=== PATIENT | male | born 1950 | race Caucasian/White ===

== ENCOUNTER 2016-07-09 15:01 | Inpatient (IN) | payer MEDICARE ==
[~2016-07-09] VITALS: Ht 177.8 cm; Wt 120.0 kg
--- NOTE | ~2016-07-09 | CO ---
ADMIT: 07/09/2016 RM/LOC: 527 [facility] MR#: [id number] [address] [facility] [address] [place] [phone] VU GARRET Ranjit [address] [place] [address] Consultation SEX: M AGE: 65 : 1950 DATE OF CONSULTATION: 07/09/2016 ATTENDING PHYSICIAN: Aby Ernandez CONSULTING PHYSICIAN: Castro Booth MD REASON FOR CONSULTATION: Right tib-fib fracture. HISTORY OF PRESENT ILLNESS: The patient is a 65-year-old male with multiple medical problems including an aortic valve, which he is on Coumadin for. He was up in [place] at his home when he fell down on the ground injuring his left lower leg. He was found to have a tib-fib fracture in [place], was splinted and sent to our facility for definitive care and treatment. The patient is once again on Coumadin for an aortic valve. His INR was 3.48. Dr. Ernandez has admitted him and started him on some vitamin K and FFP. The patient denies any other injuries during the fall. PAST MEDICAL HISTORY: As per Dr. Ernandez' history and physical. MEDICATIONS: Please see the medication MAR. ALLERGIES: NO KNOWN DRUG ALLERGIES. SOCIAL HISTORY: Patient lives with in [place]. REVIEW OF SYSTEMS: Noncontributory with exception of his right lower extremity at this time. PHYSICAL EXAMINATION: HEENT, heart, lungs, and abdomen as per Dr. Ernandez medical evaluation. Examination of right lower extremity, he does have some swelling. His compartments are supple. He is able to wiggle his toes. Good palpable pulses. Sensation intact to light touch. No increased pain with passive stretch of his toes. No evidence of compartment syndrome at this time. IMAGING: X-rays show a distal 3rd tibia fracture with distal 3rd comminuted fibular fracture. Little bit of shortening noted here, just some very mild angulation. On the initial x-rays from [place], the foot was certainly externally rotated. We did re-splint him in our emergency room pulling this out straighter, placing a well-padded posterior splint up just past the knee and packed some ice on this. ASSESSMENT: Left tib-fib fracture. This is a closed injury from low energy trauma fall from a standing position. Also has multiple medical problems and ADMIT: 07/09/2016 RM/LOC: 527 [facility] MR#: [id number] [address] [address] GARRET WOMACK [address] [place] [address] Consultation SEX: M AGE: 65 : 1950 is anticoagulated at this time. PLAN: Once again, we placed him into a well-padded posterior splint just past the knee. No evidence of compartment syndrome at this time. We will have him reverse his Coumadin, normalize his INR as he is about 3.5 at this point. He got some vitamin K, and is going to get some fresh frozen plasma as well. The goal is to hopefully get this down by morning so that we could proceed with an intramedullary nail here. We discussed the procedure as well as risks and benefits with the patient's at length including but not limited to, infection, bleeding, damage to nerves and blood vessels, nonunion, need for further surgery. The questions were answered and they do agree to proceed at this time. Castro Booth MD/ taylor JOB #: [id number] CC: Aby Ernandez, Attending Physician Aby Ernandez, Family Physician
--- NOTE | 2016-07-12 08:22 | ER ---
ADMIT: 07/09/2016 RM/LOC: 527 [facility] MR#: [id number] [address] [facility] [address] [place], [place] [address] GARRET WOMACK [address] [place] [address] Emergency Room Report SEX: M AGE: 65 : 1950 DATE: 07/09/2016 TIME: 1501 hours. Please refer to my T-sheet for complete H and P. Briefly, patient is a 65-year- old who comes in with a fractured right leg. The complexity is he doubled up on his meds today accidentally and he got lightheaded, fell, hurt his right leg. He was seen at [place], diagnosed with a fracture, put in a splint, transported down here. He says he hurts nowhere else. Did not hit his head or neck. He is anticoagulated on Coumadin. PHYSICAL EXAMINATION: VITAL SIGNS: Blood pressure 125/72, pulse 62, respirations 10, sat 96% room air, temp is 97.3 GENERAL he is in no acute distress. HEENT: Grossly normal. Pupils equal, round, and reactive to light. NECK: He has no pain in his neck. LUNGS: Clear. HEART: Regular with a grade 4/6 systolic murmur. He has a mechanical valve. ABDOMEN: Soft. BACK: He has no gross deformities or pain. Pelvis, no pain with pelvic rock. EXTREMITIES: His left lower and bilateral upper extremities are grossly normal. Right lower is in a splint. Pain from knee down. He does have a pedal pulse and he is able to move his toes. EMERGENCY DEPARTMENT COURSE: I reviewed his x-ray, it revealed both tib-fib fractures that are displaced. We are going to remove his splint. I talked to Dr. Booth and talked to Dr. Ernandez who will admit to the hospital. They will be involved in his care. ASSESSMENT: 1. Right tib-fib fracture as described. 2. Fall. 3. Anticoagulated. PLAN: Admit to the hospital. Stanislaw Benitez MD/ taylor JOB #: [id number] CC: Aby Ernandez MD, Attending Physician Aby Ernandez MD, Family Physician
--- NOTE | 2016-07-13 07:00 | HP ---
ADMIT: 07/09/2016 RM/LOC: 527 [facility] MR#: [id number] [address] [facility] [address] [place], [place] [address] GARRET PEREYRA [address] [place] [address] History and Physical SEX: M AGE: 65 : 1950 DATE OF SERVICE: 07/09/2016 HISTORY OF PRESENT ILLNESS: Mr. Pereyra is a 65-year-old man with a past medical history significant for aortic stenosis followed by mechanical [facility] aortic valve replacement as well as idiopathic hypertrophic subaortic stenosis with myectomy, COPD of unknown grade, hypertension, hyperlipidemia, history of nephrolithiasis, and PTSD, who presents to our facility after sustaining a right tib-fib fracture. He states that he was in his usual state of health until last Tuesday when he was diagnosed with a urinary tract infection. He states that it was a severe kidney infection and he was placed on Levaquin and baclofen for the back spasms. He states that he has been taking the Levaquin and baclofen as instructed. He states that he was taking a nap after lunch, and woke up and took his evening medications. He states that he is not sure exactly what prompted him to take the evening medications early, but he did. He then started having some muscles spasms and jerking of his legs. He states that he jerked and then went down next to a piano, but then had another muscle spasm and his legs jerked again, and he went down on his leg and it snapped. He states that he has been having some fevers with his infection, last one was yesterday evening. Today is the first day that he has not had back spasms. He has no kidney doctor, but has seen Dr. Rivera in the past from Urology here for his history of kidney stones. He states that it has been several years since he has seen Dr. Rivera. He denies any burning with urination. He does state that his urine is cloudy. He states that a culture was done at [facility], and it is sensitive to the medication that he is currently on. He states that he has been battling kidney stones for several years. He states that he has also been having difficulties with urinary tract and kidney infections for the last several months. When the patient arrived at the [facility], he was noted to have a blood pressure of 73/56. He was afebrile. Heart was in the 60s, respiratory rate is 16, and he was saturating at 95% on room air. In the hospital emergency room, he was started on normal saline bolus of 1 L. An x-ray demonstrated a comminuted fracture of the right tib-fib and a posterior splint was placed. He was transferred to [place] for further medical evaluation and care. He tells me that he does have the shortness of breath and can walk 2 to 3 flights of stairs without difficulties he estimates. He states that he has never had any problems with anesthesia in the past. He does not have any blood clot in himself or his family members. He does state that he does have hypertension. He also is overweight on appearance and is greater than 65. He states that his neck circumference is just 15.5 inches. This is based off his dress shirt neck collar size. PAST MEDICAL HISTORY: 1. Hypertension. 2. Hyperlipidemia. 3. COPD with history of recurrent pneumonias. 4. History of nephrolithiasis. ADMIT: 07/09/2016 RM/LOC: 527 [facility] MR#: [id number] [address] [place] [phone] GARRET PEREYRA [address] [place] [address] History and Physical SEX: M AGE: 65 : 1950 5. History of stenotic aortic valves and idiopathic hypertrophic subaortic stenosis status post myectomy and aortic valve replacement. 6. PTSD, anxiety, and depression after the of 2 of his sons. PAST SURGICAL HISTORY: 1. Aortic valve replacement and myectomy approximately 11 years ago. 2. Rotator cuff surgery in 1997. 3. Cataract surgery. HOME MEDICATIONS: Include: 1. Lisinopril 5 mg every day. 2. Metoprolol tartrate 25 mg twice daily. 3. Amlodipine 2.5 mg every day. 4. Warfarin 2.5 mg every Tuesday, Tuesday, Tuesday, , Tuesday, and Tuesday. 5. Spiriva. 6. Ventolin. 7. Baclofen. 8. Sucralfate. 9. Divalproex 500 at bedtime. 10.Alprazolam 1 mg at bedtime. 11.Venlafaxine 150 mg daily. 12.Furosemide 40 mg every day. 13.Aspirin 81 mg daily. 14.Vitamin D 2000 units daily. 15.Multivitamin. 16.The patient is on Levaquin 500 mg daily for a bladder infection. ALLERGIES: NO KNOWN MEDICAL ALLERGIES. FAMILY HISTORY: Both his mother and father were alcoholics. He states that his mother, father, and a brother passed in a carbon monoxide poisoning. He has some siblings with type 2 diabetes. He states that he has had 2 sons passed, one son had some sort of heart disease and the patient thinks that he passed from a heart attack in his 30s. Second son from drug abuse. SOCIAL HISTORY: The patient states that he is a former smoker, but tells me that his smoking was limited to bumming off cigarette from friends. Denies any alcohol problems. Denies any drugs. 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 He is disabled from his PTSD. He lives in [place] with his . He enjoys working on solar panels. REVIEW OF SYSTEMS: The patient states that he has had fevers over the last couple of days as well as some edema in his lower extremities. He also has had severe back pains as mentioned in the history of present illness as well as muscle spasms in his legs as mentioned above. Otherwise, a complete review ADMIT: 07/09/2016 RM/LOC: 527 [facility] MR#: [id number] 26[address] [facility] [address] [place], [place] [address] VU GARRET Ranjit [address] [place] [address] History and Physical SEX: M AGE: 65 : 1950 of systems was obtained and is negative other than mentioned above. PHYSICAL EXAMINATION: VITAL SIGNS: The patient is afebrile. He has a heart rate in the 60s and his blood pressure is now 96/52. He is saturating at 93% to 96% on room air. GENERAL: He is alert and oriented to person, place, and time of the year as well as his current situation. He does not appear to be in any acute distress. HEENT: He has normocephalic and atraumatic head. Hearing is intact to conversation. He has intact extraocular eye movements. His pupils are quite pinpoint after receiving several doses of IV narcotics for pain. He has moist mucous membranes. His nose is midline and does not have any lesions to it. He does have a large neck. HEART: He does have irregular rate and rhythm. His heart sounds are appropriate in amplitude. He does have a 3/6 holosystolic murmur consistent with a mechanical aortic valve. This is best heard over the left second intercostal space. No other murmurs detected. LUNGS: Clear to auscultation bilaterally on the anterior exam. He is unable to sit up for posterior exam secondary to placement of his leg. ABDOMEN: Soft and nontender. He does have some CVA tenderness on the right side. He does have hypoactive bowel sounds. EXTREMITIES: Warm and well perfused. He does not have any edema noted over the left lower extremity. The right lower extremity is wrapped in a sponge. He does have intact sensation of both feet. LABORATORY DATA: In [place], he was noted to have a white count of 4.73, hemoglobin of 14.2, platelets of 160. His INR was 3.43. His electrolytes were grossly within normal. He was noted to have a creatinine of 1.72 and glucose of 141. IMAGIN. X-ray of the right leg demonstrated comminuted fracture of the tib-fib. 2. EKG revealed sinus bradycardia, prolonged GA interval, probable left atrial enlargement, and left ventricular hypertrophy with secondary repolarization abnormality and borderline prolonged QTc interval at greater than 475. ASSESSMENT AND PLAN: 1. Right tib-fib displaced comminuted fracture. Orthopedics has been consulted. They will plan on surgery as soon as possible. The patient is on Coumadin for anticoagulation in the setting of his mechanical aortic valve. His most recent INR was 3.43. We will plan on giving him 10 mg of vitamin K as well as 2 units of FFP and rechecking an INR thereafter. We will correct him to an INR of approximately 1.5 for the surgery to occur. For his preoperative assessment, we will obtain a UA as well as a chest x-ray. He is currently an RCRI score of 0. This places him as a low-risk candidate for an intermediate procedure. He does have a Stop Bang score of 4 to 5, which places him at intermediate- ADMIT: 07/09/2016 RM/LOC: 527 [facility] MR#: [id number] [address] [place] [phone] GARRET PEREYRA [address] [place] [address] History and Physical SEX: M AGE: 65 : 1950 to-high risk of obstructive sleep apnea. We recommend that he be monitored with continuous pulse oximetry in the perioperative period and that his head of bed be kept at 30 degrees at all times. He is not currently undergoing a chronic obstructive pulmonary disease exacerbation which is helpful. 2. Mechanical aortic valve. We will need to bridge him back to warfarin in the postoperative period. We will take direction from the Orthopedic surgeons regarding when his anticoagulation can be restarted. We can either bridge him with heparin given his renal function. 3. Hypertension. At this point in time, we will hold his home antihypertensive. We will restart them as needed. 4. Hyperlipidemia. We will continue his multivitamin. 5. History of nephrolithiasis and current treatment for right-sided pyelonephritis. We will continue him on the levofloxacin 500 mg daily. 6. Posttraumatic stress disorder. We will continue his divalproex as well as his quetiapine. 7. Chronic obstructive pulmonary disease. We will continue the Spiriva and the Ventolin. We will continue to monitor him for respiratory distress in the preoperative period. 8. Gastroesophageal reflux disease. We will continue the sucralfate 1 g at bedtime. 9. For DVT prophylaxis. He does not need DVT prophylaxis at this point in time as he is therapeutic on his Coumadin. We are acting to reverse this in the setting of surgery. 10.Respiratory prophylaxis. We will provide him with incentive spirometer. Kandy Ohara MD Resident / Aby Ernandez MD / modl JOB #: [id number] CC: Aby Ernandez, Attending Physician Aby Ernandez, Family Physician Vinh Hernandez PA-C
[2016-07-15] MEDS ORDERED: COUMADIN5 MG PO (13:34)
[2016-07-15] MEDS ORDERED: DEPAKOTE500 MG PO (13:34)
[2016-07-15] MEDS ORDERED: CARAFATE DPS1 GM PO (13:34)
[2016-07-15] MEDS ORDERED: CARDURA DPS2 MG PO (13:34)
[2016-07-15] MEDS ORDERED: EFFEXOR XR DPS150 MG PO (13:35)
[2016-07-15] MEDS ORDERED: LEVAQUIN DPS500 MG PO (13:35)
[2016-07-15] MEDS ORDERED: MIRALAX PACKET17 GM PO (13:36)
[2016-07-15] MEDS ORDERED: LOPRESSOR DPS50 MG PO (13:36)
[2016-07-15] MEDS ORDERED: SENOKOT S1 TAB PO (13:36)
[2016-07-15] MEDS ORDERED: HYDROCODON-ACE1 EAC2 PO (13:37)
[2016-07-15] MEDS ORDERED: SEROQUEL DPS100 MG PO (13:37)
[2016-07-15] MEDS ORDERED: SPIRIVA18 MCG IH (13:37)
[2016-07-15] MEDS ORDERED: XANAX DPS1 MG PO (13:37)
[2016-07-15] MEDS ORDERED: PERCOCET 7.5 DP1 TAB PO (13:38)
[2016-07-15] MEDS ORDERED: ULTRAM DPS50 MG PO (13:38)
[2016-07-15] MEDS ORDERED: LIORESAL DPS20 MG PO (13:38)
[2016-07-15] MEDS ORDERED: PROVENTIL2.5 MG/3 M IH (13:39)
[2016-07-15] MEDS ORDERED: NORVASC2.5 MG PO (13:40)
[2016-07-15] MEDS ORDERED: PROAIR RESPICL90 MCG IH (13:41)
[2016-07-15] MEDS ORDERED: ASPIR 8181 MG PO (13:42)
--- NOTE | 2016-07-16 09:13 | OR ---
ADMIT: 07/09/2016 RM/LOC: 527 [facility] MR#: [id number] 2620 [facility] [address] [place] [phone] GARRET WOMACK [address] [place] [address] Operative/Delivery Room Report SEX: M AGE: 65 : 1950 SURGERY DATE: 07/10/2016 SURGEON: Castro Booth MD PREOPERATIVE DIAGNOSIS: Right closed tibia-fibula fracture. POSTOPERATIVE DIAGNOSIS: Right closed tibia-fibula fracture. PROCEDURE: Right tib-fib fracture intramedullary nailing. MANAGER MEDIA: CHRIS Estes ANESTHESIA: General. ESTIMATED BLOOD LOSS: 50 mL. TOTAL TOURNIQUET TIME: Approximately 70 minutes. COMPLICATIONS: None. CONDITION: Fair to recovery room. INDICATIONS: The patient is a 65-year-old male with multiple medical problems, was at home yesterday, fell injuring his right lower extremity. He was seen in [place], found to have a tibia fracture as well as the comminuted fibular fracture, kind in the distal third here. He was then splinted and sent to our facility for further evaluation and treatment. Upon seeing the patient in the emergency room, splint was taken down, so we could actually check the skin and swelling here. This was a closed injury. He had kind of a hematoma at the fracture site, but his compartments were supple. No clinical signs of compartment syndrome. The patient is also on Coumadin. His INR was about 3-1/2. Dr. Suarez immediately got started on reversing his anticoagulation with vitamin K and FFP. We placed him back into a well-padded posterior splint. The patient was comfortable. We did talk to him about the injury as well as treatment options. Talked to him and his about this. At this point, I would like to proceed with intramedullary nailing. We discussed the procedure as well as risks and benefits with him at length. I am going to watch him overnight to make sure he did not develop any signs or symptoms of compartment syndrome. The patient was then seen this morning after his INR had come down to 1.44. Once again, no evidence of compartment syndrome. Compartments were supple. No pain with passive stretch of the toes. He is otherwise distally neurovascularly intact. DESCRIPTION OF PROCEDURE: After informed consent was obtained, the patient was taken to the operating room, placed on the operative room table in supine position. General anesthetic was administered. After adequate general anesthesia, a tourniquet was placed on right upper thigh and right lower extremity was prepped and draped in the usual sterile fashion. We then gravity exsanguinated the right lower extremity, inflated the tourniquet to ADMIT: 07/09/2016 RM/LOC: 527 [facility] MR#: [id number] [address] [address] GARRET WOMACK [address] [place] [address] Operative/Delivery Room Report SEX: M AGE: 65 : 1950 300 mmHg. We then made a midline incision at the knee, cheating just slightly medially here. I made an incision just at medial edge of the patella. We then used a finger to kind of dissect bluntly behind the patella to the anterior ridge of the tibia. We then placed an awl under direct fluoroscopic visualization, it was noted be in good position both AP and lateral views. We then opened the proximal tibia using the awl. We then placed a ball-tip guidewire across the fracture without difficulty. This was also confirmed using C-arm fluoroscopy. Once this was completed, we then began reaming with an 8.5 end cutting reamer and reamed up to a 11.5 in anticipation of using a 10 nail, got good chatter beginning at about the 10 reamer. We measured for length and elected to use a 345 mm length, tibial nail 10 mm in diameter. Once the reaming was completed, we then placed the nail over the guidewire crossing the fracture without difficulty with good reduction of the tibia fracture noted at this point. Once this was completed, the fracture was noted to be well reduced and the tibial nail was in good position. We placed 2 proximal screws 1 in the static and 1 in the dynamic slot using standard AO technique through 2 small stab incisions. Good bites with the screws. Once this was completed, we then placed two [id number] distal screws as well. Using fluoroscopy for perfect anvik technique. We made 2 small stab incisions and placed two medial lateral locking screws distally as well. Once this was completed, we took some additional fluoroscopic views showing good reduction of fracture and good position of the nail. We then placed a 0 mm end cap onto the tibial nail and seated this using a screwdriver. The wounds then were copiously irrigated. The split just medial to the patellar tendon was reapproximated using #1 Vicryl in a ubocel-yd-paual fashion. Wounds once again copiously irrigated. Subcutaneous tissues closed using 2-0 Vicryl in simple interrupted fashion, the skin with skin twin. We then injected the incisions with approximately 30 mL of 0.5% Marcaine for postoperative pain control. A sterile compressive dressing was applied consisting of Xeroform, plain gauze, ABDs, Webril, we then placed a posterior splint overwrapped with an Jayden wrap. The patient was then transferred to recovery room in fair condition. Castro Booth MD/ taylor JOB #: [id number] CC: Aby Ernandez, Attending Physician Aby Ernandez, Family Physician
--- NOTE | 2016-08-26 01:21 | DS ---
ADMIT: 07/09/2016 RM/LOC: [facility] MR#: [id number] [address] [address] [place], [place] [id number] Discharge Summary SEX: M AGE: 65 : 1950 ADMISSION DATE: 07/09/2016 DISCHARGE DATE: 07/14/2016 DIAGNOSES: 1. Right tib-fib fracture. 2. Hypertension. 3. Recent UTI (urinary tract infection). 4. Diabetes. 5. Mechanical aortic valve. 6. History of IHSS (idiopathic hypertrophic subaortic stenosis), status post myomectomy. 7. History of nephrolithiasis. 8. COPD (chronic obstructive pulmonary disease). 9. PTSD (post traumatic stress disorder). 10.Somnolence after surgery. 11.Hyperkalemia. 12.Acute kidney injury secondary to prerenal azotemia-improved. 13.Elevated postvoid residual of over 600 mL. 14.Elevated liver enzymes. PROCEDURES: 1. FFP x2. 2. Right tib-fib intramedullary nailing. CONSULT: Ortho. REASON FOR HOSPITALIZATION: Fracture. See dictated H and P. LABORATORY AND X-RAY DATA: White count 6.8, hemoglobin 11.9, platelet count 152. INR 2.13 on discharge. Sodium 137, potassium 4.6, chloride 106, CO2 25, BUN 50 down to 32, creatinine 3 down to 1.2, calcium 8.3, total bilirubin 0.4, total protein 6. Albumin 2.5, alkaline phosphatase 64, AST 162, ALT 37. Sugars variable, see chart. Chest x-ray with previous sternotomy and no acute findings. COURSE IN THE HOSPITAL: Huan was admitted from an outside facility after having a fracture. He was transferred by ortho to my service. He had reversal of his pro-time. He then underwent a pinning procedure on 07/10. Surgery was pretty unremarkable. We did restart the warfarin. Blood pressure did start to trend up after it had been low for a while. We started some of his medications and monitored closely. His blood pressure did improve. We monitored his postvoid and unfortunately it did not improve. Ayon catheter was placed. He required encouragement for breathing and getting up and moving about. Hypotension resolved. Kidney function began to improve. We did follow his sugars for a little bit and they were fine. For the blood pressure and his difficulty with urinating, I did start some Cardura. We also felt we would try some tramadol for pain. Constipation was an issue so we began to work on that with results. He did feel a little bit better after that. He was finally feeling better for rehab. It was felt his pain was under control ADMIT: 07/09/2016 RM/LOC: [facility] MR#: [id number] [address] [address] [place] [address] Discharge Summary SEX: M AGE: 65 : 1950 as well as his other health issues. His creatinine was down to 1.2. On 07/14, he was felt stable to go to a skilled facility for rehab. DISCHARGE MEDICATIONS: 1. Levofloxacin 500 mg daily for 6 days. 2. Carafate 1 g at bedtime as previously. 3. Cardura 2 mg at bedtime. 4. Depakote 500 at bedtime. 5. Effexor XR 150 daily. 6. Lopressor 25 b.i.d. 7. MiraLAX daily. 8. Senokot-S 2 daily. 9. Seroquel 200 mg at bedtime. 10.Xanax 1 mg at bedtime. 11.Spiriva daily. 12.Hydrocodone 7.5, 1-2 every 4 hours p.r.n. 13.Baclofen 10 mg q.8h p.r.n. 14.Percocet 7.5, 1-2 q.4h p.r.n. 15.Tramadol 50 mg q.6h p.r.n. 16.Ventolin HFA and albuterol unit dose nebulizer every four p.r.n. 17.Coumadin 5 mg daily. 18.Norvasc 5 mg daily. 19.Aspirin 81 mg daily. DISCHARGE INSTRUCTIONS: He will have a pro-time on 07/16/2016. He will also have more lab on 07/20 including CBC, CMP and pro-time. He will see me in one month but I think at that time he will probably be discharged and will not need to be seen. Overall prognosis is good. Aby Ernandez MD/ [facility] JOB #: [id number] CC: Aby Ernandez MD, Attending Physician Aby Ernandez MD, Family Physician JOSLYN Alvares MD
== END 2016-07-14 15:41 | DRG 493 ==
LOC: ER 15:01 → 5MS 15:32
PROVIDERS: ADMIT Internal Medicine
DX: S82.251A Displaced comminuted fracture of shaft of right tibia, initial encounter for closed fracture (principal); N12 Tubulo-interstitial nephritis, not specified as acute or chronic; N17.9 Acute kidney failure, unspecified; I95.9 Hypotension, unspecified; E87.5 Hyperkalemia; J44.9 Chronic obstructive pulmonary disease, unspecified; S82.451A Displaced comminuted fracture of shaft of right fibula, initial encounter for closed fracture; W19.XXXA Unspecified fall, initial encounter; I35.0 Nonrheumatic aortic (valve) stenosis; K59.00 Constipation, unspecified; K21.9 Gastro-esophageal reflux disease without esophagitis; I10 Essential (primary) hypertension; E78.5 Hyperlipidemia, unspecified; F43.10 Post-traumatic stress disorder, unspecified; M62.830 Muscle spasm of back; F41.9 Anxiety disorder, unspecified; F32.9 Major depressive disorder, single episode, unspecified; Z79.01 Long term (current) use of anticoagulants; Z79.82 Long term (current) use of aspirin; Z87.891 Personal history of nicotine dependence; Z95.2 Presence of prosthetic heart valve